=== PATIENT | female | born 1995 | race Two or more races ===

== ENCOUNTER 2017-06-10 20:28 | Emergency (ER) | payer BC ==
[~2017-06-10] VITALS: Ht 160 cm; Wt 46.7 kg
[~2017-06-10 20:28] MED LIST: CYCLOBENZAPRINE10 MG ORAL; NKM
--- NOTE | 2017-06-10 21:24 | Emergency Room Report ---
History of Present Illness General Chief Complaint: Sore Throat Source: Patient Present Illness HPI Patient presents with several days of being ill. Most significant for sore throat right now. She did not get a flu shot this year. She also has aches and pains and nausea. She vomited once at work earlier today. She knows she is not at this time. Some beige loose stools. There's been no rash. She denies any wheezing or productive cough. 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 Now: No Reviewed Nursing Documentation: PMH: Agreed, PSxH: Agreed Nursing Documentation-PMH Past Medical History: No History, Except For Hx Gastrointestinal Problems: No - abdominal surgery for malrotation of intestines 2010 Review of Systems All Other Systems: negative except mentioned in HPI Physical Exam Vital Signs Date Time Temp Pulse Resp B/P (MAP) Pulse Ox O2 Delivery O2 Flow Rate FiO2 06/10/17 21:10 98.4 95 16 118/81 99 Room Air Sp02 EP Interpretation: reviewed, normal General Appearance: well appearing, no apparent distress Head: normocephalic, atraumatic Eyes: bilateral eye normal inspection, bilateral eye PERRL ENT: TMs + canals normal, pharyngeal erythema Neck: full range of motion, supple Respiratory: no respiratory distress, speaking full sentences Cardiovascular #2: 2+ radial (R) Gastrointestinal: normal bowel sounds, non tender, scaphoid Musculoskeletal: back normal, digits/nails normal, gait/station normal, normal range of motion, no calf tenderness Neurologic: alert, oriented x3, normal gait, grossly normal Psychiatric: mood/affect normal Skin: no rash Medical Decision Making Diagnostic Impression: Primary Impression: Pharyngitis Qualified Codes: J02.9 - Acute pharyngitis, unspecified Additional Impression: Nausea ER Course Patient presents with several symptoms with pharyngitis with exam consistent with strep. Others on the differential include viral. Has nausea will be treated for this. She is allergic to amoxicillin therefore she'll be given a Z- Gregg. The patient is stable for outpatient observation and treatment. Last Vital Signs Date Time Temp Pulse Resp B/P (MAP) Pulse Ox O2 Delivery O2 Flow Rate FiO2 06/10/17 21:37 123/93 06/10/17 21:25 98.4 63 16 99 Room Air Status: improved Disposition: HOME, SELF-CARE Condition: Improved Scripts Ibuprofen* (MOTRIN*) 600 Mg Tablet 600 MG ORAL Q6H Y for For Pain, #16 TAB Prov: Abe Pham M.D. 06/10/17 Ondansetron Odt* (ZOFRAN ODT*) 4 Mg Tab.rapdis 4 MG ORAL Q8H Y for Nausea & Vomiting, #6 TAB 1 Refill Prov: Abe Pham M.D. 06/10/17 Azithromycin* (ZITHROMAX*) 250 Mg Tablet 250 MG ORAL two tabs today, one, #6 TAB 0 Refills Take two tables once daily for 1 day, then one tablet once daily for 4 days. Prov: Abe Pham M.D. 06/10/17 Abe Pham M.D. Jun 10, 2017 21:24
[2017-06-10 21:25] VITALS: BP 123/84
[2017-06-10] MEDS ORDERED: ZOFRAN ODT4 MG ORAL (21:28)
[2017-06-10] MEDS ORDERED: ZITHROMAX250 MG ORAL (21:28)
[2017-06-10] MEDS ORDERED: IBUPROFEN600 MG ORAL (21:28)
[2017-06-10 21:37] VITALS: BP 123/93
== END 2017-06-10 21:37 | disposition home or self-care (01) ==
LOC: EMR 21:26
DX: J02.9 Acute pharyngitis, unspecified (principal); R11.0 Nausea; Z88.6 Allergy status to analgesic agent; Z88.0 Allergy status to penicillin; Z88.5 Allergy status to narcotic agent
CPT/HCPCS: 99284

== ENCOUNTER 2017-07-11 20:48 | Emergency (ER) | payer BC ==
[~2017-07-11] VITALS: Ht 160 cm; Wt 46.7 kg
[~2017-07-11 20:48] MED LIST changes: +IBUPROFEN600 MG ORAL; +ZITHROMAX250 MG ORAL; +ZOFRAN ODT4 MG ORAL
[2017-07-11 21:00] VITALS: BP 113/70
[2017-07-11] MEDS ORDERED: IBUPROFEN600 MG ORAL (21:08)
[2017-07-11] MEDS ORDERED: NEXAFED30 MG ORAL (21:08)
--- NOTE | 2017-07-11 21:08 | Emergency Room Report ---
History of Present Illness General Chief Complaint: Flu Like Symptoms Source: Patient Present Illness [facility] This is a 22-year-old female with no significant past medical history. She presents with chief complaint of flulike illnesses. Onset for last 3 days. No nausea no vomiting. Has congestion and runny nose. Cough. Ward weak and dizzy at work when she stood up. No syncope. No other complaint. Has generalized body pain. Allergies: Coded Allergies: ACETAMINOPHEN (Verified Allergy, Unknown, 06/10/17) AMOXICILLIN (Verified Allergy, Unknown, 06/10/17) CODEINE (Verified Allergy, Unknown, 06/10/17) MORPHINE (Verified Allergy, Unknown, 06/10/17) Patient History Past Medical History: none, see triage record, old chart reviewed Past Surgical History: none Pertinent Family History: none Social History: Denies: smoking Last Menstrual Period: jun 22 Now: No : 0 Para: 0 Immunizations: other Reviewed Nursing Documentation: PMH: Agreed, PSxH: Agreed Nursing Documentation-PMH Hx Gastrointestinal Problems: No - abdominal surgery for malrotation of intestines 2011 Review of Systems Constitutional: Reports: malaise, weakness Eye: Denies: eye pain, blurred vision ENT: Reports: nose congestion, Denies: ear pain, throat swelling Respiratory: Denies: cough, shortness of breath Cardiovascular: Denies: chest pain, palpitations Gastrointestinal: Denies: abdominal pain, diarrhea, nausea, vomiting Musculoskeletal: Denies: back pain, joint pain Skin: Denies: rash Neurological: Denies: headache, numbness Endocrine: Denies: increased thirst, increased urine Hematologic/Lymphatic: Denies: easy bruising All Other Systems: negative except mentioned in HPI Physical Exam Vital Signs Date Time Temp Pulse Resp B/P (MAP) Pulse Ox O2 Delivery O2 Flow Rate FiO2 07/11/17 20:52 98.1 88 20 113/70 98 Room Air vitals normal Sp02 EP Interpretation: reviewed, normal General Appearance: well appearing, no apparent distress, alert Head: normocephalic, atraumatic Eyes: bilateral eye PERRL, bilateral eye EOMI ENT: hearing grossly normal, normal pharynx Neck: full range of motion, supple, no meningismus Respiratory: chest non-tender, lungs clear, normal breath sounds Cardiovascular #1: regular rate, rhythm, no murmur Gastrointestinal: normal bowel sounds, non tender, no mass, no organomegaly, no bruit, non-distended Musculoskeletal: back normal, gait/station normal, normal range of motion Psychiatric: mood/affect normal Skin: warm/dry Medical Decision Making Diagnostic Impression: Primary Impression: Upper respiratory infection Qualified Codes: J06.9 - Acute upper respiratory infection, unspecified; B97.89 - Other viral agents as the cause of diseases classified elsewhere ER Course Patient with a viral illness. No evidence of bacterial infection. no evidence of meningitis or sepsis. We'll discharge home. Last Vital Signs Date Time Temp Pulse Resp B/P (MAP) Pulse Ox O2 Delivery O2 Flow Rate FiO2 07/11/17 20:52 98.1 88 20 113/70 98 Room Air Status: improved Disposition: HOME, SELF-CARE Condition: Stable Scripts Pseudoephedrine Hcl* (NEXAFED*) 30 Mg Tablet 30 MG ORAL Q6H Y for congestion, #20 TAB Prov: MONTSE SHAVER M.D. 07/11/17 Ibuprofen* (MOTRIN*) 600 Mg Tablet 600 MG ORAL THREE TIMES A DAY, #30 TAB 0 Refills Prov: MONTSE SHAVER M.D. 07/11/17 Additional Instructions: Rest. Increase fluids. Followup with your Dr. in 3-5 days if not better. Return if worse. MONTSE SHAVER M.D. Jul 11, 2017 21:08
[2017-07-11 21:12] VITALS: BP 113/70
== END 2017-07-11 21:12 | disposition home or self-care (01) ==
LOC: EMR 21:03
DX: J11.1 Influenza due to unidentified influenza virus with other respiratory manifestations (principal); Z88.6 Allergy status to analgesic agent; Z88.0 Allergy status to penicillin
CPT/HCPCS: 99283